=== PATIENT | male | born 2000 | race Hispanic/Latino ===

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

== ENCOUNTER 2022-08-29 08:43 | Emergency (ER) | payer MEDICAID ==
[~2022-08-29] VITALS: Ht 177.8 cm; Wt 111.1 kg
[2022-08-29 08:47] VITALS: BP 127/71
[2022-08-29] MEDS ORDERED: FLUT16H NASAL (10:36)
== END 2022-08-29 10:45 | disposition home or self-care (01) ==
LOC: EDH 08:43
DX: J32.9 Chronic sinusitis, unspecified (principal); Z20.822 Contact with and (suspected) exposure to COVID-19
CPT/HCPCS: 99283; 87635; C9803